=== PATIENT | male | born 1985 | race African-American/Black ===

== ENCOUNTER 2021-05-12 20:01 | Emergency (ER) | payer SELFPAY ==
--- NOTE | 2021-05-12 21:47 | RAD REPORT ---
EXAM DESCRIPTION: CT - Spine Lumbar Wo Con - 05/12/2021 9:35 pm CLINICAL HISTORY: Radiculopathy. LOWER BACK PAIN COMPARISON: No comparisons TECHNIQUE: Axial noncontrast CT imaging of the lumbar spine was performed with coronal and sagittal re-formatted images. All CT scans are performed using dose optimization technique as appropriate and may include automated exposure control or mA/KV adjustment according to patient size. FINDINGS: No acute lumbar spine fracture seen. No aggressive marrow pattern or malalignment. Paraspinal tissues are normal in thickness. No paraspinal abscess or hematoma seen. Intervertebral disc disease assessment is inherently limited by CT. Within these limitations, no high -grade canal stenosis suspected. IMPRESSION: No fracture, malalignment, or significant focal degenerative changes to explain the jurgen ent's symptoms. Consider MRI follow-up for assessment of disc disease if clinically desired.
[2021-05-12] MEDS ORDERED: HYDROCODONE/APAP 7.5/325 MG TAB ONE (22:07)
[2021-05-12] MEDS ORDERED: LIDOCAINE 4% PATCH ONE (22:07)
[2021-05-12 22:51] LABS: Urine Blood Negative (Negative); Urine Glucose Negative (Negative); Urine Protein Negative (Negative); Urine Specific Gravity 1.025 (1.005-1.030)
--- NOTE | 2021-05-12 23:02 | EDPHYS ---
Physician Documentation [facility] Name: Preston Mayes Jr Age: 35 yrs Sex: Male : 1985 Arrival Date: 05/12/2021 Time: 20:09 Bed 9 Private MD: ED Physician Marcial Adams HPI: 05/12 21:17 This 35 yrs old Black Male presents to ER via Ambulatory with complaints of Low Back cp Pain. 21:17 The patient presents with pain that is acute. The symptoms are located in the low back. cp 21:17 The pain does not radiate. 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 Patient reports worsening pain at work today. 21:17 Associated signs and symptoms: Pertinent negatives: abdominal pain, constipation, cp dysuria, fever, incontinence, numbness, weakness. Severity of symptoms: in the emergency department the symptoms are unchanged, despite home interventions. Historical: - Allergies: 20:30 No Known Allergies; sj1 - Home Meds: 20:30 Robaxin Oral [Active]; ibuprofen 600 mg Oral tab 1 tab PRN [Active]; sj1 - PMHx: 21:55 Stomach ulcer; df1 - PSHx: 21:55 None; df1 - Immunization history:: Adult Immunizations up to date. - Social history:: Smoking status: Patient reports the use of cigarette tobacco products, 2 CIGS DAILY. ROS: 21:25 Constitutional: Negative for body aches, chills, fever, poor PO intake. cp 21:25 Eyes: Negative for injury, pain, redness, and discharge. cp 21:25 ENT: Negative for ear pain, sore throat, difficulty swallowing, difficulty handling secretions. 21:25 Cardiovascular: Negative for chest pain, palpitations. 21:25 Respiratory: Negative for cough, shortness of breath, wheezing. 21:25 Abdomen/GI: Negative for abdominal pain, nausea, vomiting, and diarrhea, constipation, bowel incontinence. 21:25 Back: Positive for pain at rest, pain with movement, of the low back area and mid back area. 21:25 : Negative for urinary symptoms, difficulty urinating, bladder incontinence, testicular pain 21:25 Neuro: Negative for altered mental status, headache, numbness, tingling, weakness. 21:25 All other systems are negative. Exam: 21:30 Constitutional: The patient appears in no acute distress, alert, awake, non-toxic, well cp developed, well nourished. 21:30 Head/Face: Normocephalic, atraumatic. cp 21:30 Chest/axilla: Inspection: normal. 21:30 Cardiovascular: Rate: normal, Rhythm: regular. 21:30 Respiratory: the patient does not display signs of respiratory distress, Respirations: normal, no use of accessory muscles, no retractions, labored breathing, is not present. 21:30 Abdomen/GI: Inspection: abdomen appears normal, Palpation: abdomen is soft and non-tender, in all quadrants. 21:30 Back: pain, that is moderate, of the low back area and mid back area, ROM is painful, with all movement, Straight leg raises: of both lower extremities does not illicit pain. 21:30 Neuro: Motor: moves all fours, strength is normal, Sensation: is normal, Deep tendon reflexes are 2+ (normal) in the right patellar, right Achilles, left patellar and left Achilles. Vital Signs: 20:26 BP 116 / 88; Pulse 73; Resp 18 S; Temp 98.2(O); Pulse Ox 100% on R/A; Weight 68.04 kg sj1 (R); Height 5 ft. 8 in. (172.72 cm) (R); Pain 10/10; 21:55 BP 120 / 76; Pulse 75; Resp 18; Pulse Ox 100% on R/A; df1 20:26 Body Mass Index 22.81 (68.04 kg, 172.72 cm) sj1 MDM: 21:15 Patient medically screened. cp 22:00 Differential diagnosis: strain, sciatica, Herniated disc cauda equina, spinal stenosis. cp 23:00 Data reviewed: vital signs, nurses notes, radiologic studies, CT scan. cp 23:00 Counseling: I had a detailed discussion with the patient and/or guardian regarding: the cp historical points, exam findings, and any diagnostic results supporting the discharge/admit diagnosis, radiology results, the need for outpatient follow up, a family practitioner, to return to the emergency department if symptoms worsen or persist or if there are any questions or concerns that arise at home. Response to treatment: the patient's symptoms have markedly improved after treatment, Pain improved with meds. Will discharge to home for continued monitoring. 05/12 22:51 Order name: Urine Dipstick-Ancillary EDMS 05/12 21:17 Order name: CT Lumbar Spine Wo Con; Complete Time: 22:31 cp 05/12 22:32 Interpretation: Report reviewed. cp 05/12 21:17 Order name: Urine Dipstick-Ancillary (obtain specimen); Complete Time: 22:51 cp Administered Medications: 21:52 Drug: Hydrocodone-Acetaminophen (7.5 mg-325 mg) 1 tabs Route: PO; df1 21:52 Drug: Lidoderm Patch 5 % (700 mg/patch) 1 patches Route: Topical; Site: affected area; df1 Disposition: 05/13 04:45 Co-signature as Attending Physician, Marcial Adams MD Did not see or evaluate patient. ps1 Signature is for administrative purposes and not an endorsement of care provided. . Disposition Summary: 05/12/21 23:01 Discharge Ordered Location: Home cp Problem: new cp Symptoms: have improved cp Condition: Stable cp Diagnosis - Low back pain cp Followup: cp - With: Private Physician - When: 2 - 3 days - Reason: Recheck today's complaints Discharge Instructions: - Discharge Summary Sheet cp - Acute Back Pain, Adult cp - Heat Therapy cp - Back Exercises cp Forms: - Medication Reconciliation Form cp - Thank You Letter cp - Antibiotic Education cp - Prescription Opioid Use cp Prescriptions: - Lidoderm 5 % Topical adhesive patch,medicated - apply 1 patch by TOPICAL route once daily; 1 box; Refills: 0, Product Selection cp Permitted - Cyclobenzaprine 10 mg Oral Tablet - take 1 tablet by ORAL route every 8 hours As needed; 20 tablet; Refills: 0, cp Product Selection Permitted - Medrol (Aniceto) 4 mg Oral Tablets, Dose Pack - take 1 tablet by ORAL route as directed - follow package instructions; 1 cp packet; Refills: 0, Product Selection Permitted Signatures: Dispatcher [employer] EDMS Cory Downing PA PA Marcial Hassan MD MD ps1 Furlich, Dawn df1 Annabel Ortiz RN RN sj1
--- NOTE | 2021-05-12 23:02 | ER ---
Nurse's Notes [facility] Name: Preston Mayes Jr Age: 35 yrs Sex: Male : 1985 Arrival Date: 05/12/2021 Time: 20:09 Bed 9 Private MD: Diagnosis: Low back pain Presentation: 05/12 20:26 Chief complaint: Patient states: LOW BACK PAIN X 2 WKS, STARTED IN THE MIDDLE NOW sj1 RADIATES TO RIGHT AND LEFT SIDE. C/O NAUSEA DENIES VOMITING. DENIES INJURY TO BACK. WAS RECENTLY SEEN AND WAS PRESCRIBED ROBAXIN AND IBUPROFEN, NO IMPROVEMENT IN S/S. Coronavirus screen: Vaccine status: Patient reports receiving the 2nd dose of the covid vaccine. Date November 2021. Ebola Screen: Patient negative for fever greater than or equal to 101.5 degrees Fahrenheit, and additional compatible Ebola Virus Disease symptoms Patient denies exposure to infectious person. Patient denies travel to an Ebola-affected area in the 21 days before illness onset. No symptoms or risks identified at this time. Initial Sepsis Screen: Does the patient meet any 2 criteria? No. Patient's initial sepsis screen is negative. Does the patient have a suspected source of infection? No. Patient's initial sepsis screen is negative. Risk Assessment: Do you want to hurt yourself or someone else? Patient reports no desire to harm self or others. Onset of symptoms was April 28, 2021. 20:26 Method Of Arrival: Ambulatory [facility] 20:26 Acuity: DEEPIKA 4 sj1 Triage Assessment: 20:30 General: Appears in no apparent distress. Behavior is calm, cooperative, appropriate sj1 for age. Pain: Complains of pain in back. EENT: No deficits noted. Neuro: Reports. Neuro: Reports TINGLING IN HANDS LAST NIGHT. Cardiovascular: No deficits noted. Respiratory: No deficits noted. GI: Reports nausea. : No deficits noted. Derm: No deficits noted. Musculoskeletal: Reports pain in back. Historical: - Allergies: 20:30 No Known Allergies; sj1 - Home Meds: 20:30 Robaxin Oral [Active]; ibuprofen 600 mg Oral tab 1 tab PRN [Active]; sj1 - PMHx: 21:55 Stomach ulcer; df1 - PSHx: 21:55 None; df1 - Immunization history:: Adult Immunizations up to date. - Social history:: Smoking status: Patient reports the use of cigarette tobacco products, 2 CIGS DAILY. Screenin:32 Abuse screen: Denies threats or abuse. Denies injuries from another. Nutritional sj1 screening: No deficits noted. Tuberculosis screening: No symptoms or risk factors identified. Fall Risk None identified. Assessment: 21:57 General: Appears in no apparent distress. Behavior is calm, cooperative. Pain: df1 Complains of pain in lumbar area, low back area and left low back Pain radiates to right leg and left leg Pain currently is 7 out of 10 on a pain scale. Neuro: No deficits noted. Cardiovascular: No deficits noted. Respiratory: No deficits noted. GI: No deficits noted. : No deficits noted. EENT: No deficits noted. Musculoskeletal: No deficits noted. Vital Signs: 20:26 BP 116 / 88; Pulse 73; Resp 18 S; Temp 98.2(O); Pulse Ox 100% on R/A; Weight 68.04 kg sj1 (R); Height 5 ft. 8 in. (172.72 cm) (R); Pain 10/10; 21:55 BP 120 / 76; Pulse 75; Resp 18; Pulse Ox 100% on R/A; df1 20:26 Body Mass Index 22.81 (68.04 kg, 172.72 cm) sj1 ED Course: 20:09 Patient arrived in ED. ja2 20:30 Triage completed. sj1 20:32 Patient has correct armband on for positive identification. sj1 20:33 Arm band placed on right wrist. sj1 21:02 Kimberley Delgadillo is Primary Nurse. df1 21:08 Cory Downing PA is PHCP. cp 21:08 Marcial Adams MD is Attending Physician. cp 21:34 CT Lumbar Spine Wo Con In Process Unspecified. EDMS 23:15 No provider procedures requiring assistance completed. Patient did not have IV access df1 during this emergency room visit. Administered Medications: 21:52 Drug: Hydrocodone-Acetaminophen (7.5 mg-325 mg) 1 tabs Route: PO; df1 21:52 Drug: Lidoderm Patch 5 % (700 mg/patch) 1 patches Route: Topical; Site: affected area; df1 Outcome: 23:01 Discharge ordered by . cp 23:15 Discharged to home ambulatory. df1 23:15 Condition: good 23:15 Discharge instructions given to patient, Instructed on discharge instructions, follow up and referral plans. medication usage, Demonstrated understanding of instructions, follow-up care, medications, Prescriptions given X 3. 23:15 Patient left the ED. df1 Signatures: Dispatcher [employer] EDMS Cory Downing PA PA cp Alexander, Jessica ja2 Furlich, Dawn df1 Annabel Ortiz RN RN sj1 Corrections: (The following items were deleted from the chart) 20:36 20:26 Chief complaint: Patient states: LOW BACK PAIN X 2 WKS, STARTED IN THE MIDDLE NOW sj1 RADIATES TO RIGHT AND LEFT SIDE. C/O NAUSEA DENIES VOMITING. DENIES INJURY TO BACK sj1
[2021-05-12 23:20] VITALS: TEMP 98.2; O2SAT 100
[2021-05-12 23:21] VITALS: BP 120/76
== END 2021-05-12 23:15 | disposition home or self-care (01) ==
LOC: ER 20:01
DX: M54.50 Low back pain, unspecified (principal); F17.210 Nicotine dependence, cigarettes, uncomplicated
CPT/HCPCS: 72131; 81003; 99283

== ENCOUNTER 2022-02-25 12:56 | Emergency (ER) | payer SELFPAY ==
[2022-02-25] MEDS ORDERED: KETOROLAC 30 MG/ML INJ ONE (13:48)
--- NOTE | 2022-02-25 14:21 | RAD REPORT ---
EXAM DESCRIPTION: RAD - Wrist Right 3 View - 02/25/2022 2:11 pm CLINICAL HISTORY: PAIN COMPARISON: No comparisonsNo comparisons FINDINGS/IMPRESSION: No acute fracture. No malalignment. No significant focal degenerative changes.
--- NOTE | 2022-02-25 14:25 | ER ---
Nurse's Notes [facility] Name: Preston Mayes Jr Age: 36 yrs Sex: Male : 1985 Arrival Date: 02/25/2022 Time: 12:57 Bed 10 Private MD: Diagnosis: Pain in right wrist Presentation: 02/25 12:59 Chief complaint: Patient states: R wrist pain for 3 days. Coronavirus screen: Client ll1 denies travel out of the [place] in the last 14 days. At this time, the client does not indicate any symptoms associated with coronavirus-19. Ebola Screen: Patient denies travel to an Ebola-affected area in the 21 days before illness onset. Initial Sepsis Screen: Does the patient meet any 2 criteria? HR > 90 bpm. No. Patient's initial sepsis screen is negative. Does the patient have a suspected source of infection? Yes: Bone or joint infection. Risk Assessment: Do you want to hurt yourself or someone else? Patient reports no desire to harm self or others. Onset of symptoms was February 23, 2022. 12:59 Acuity: DEEPIKA 4 ll1 12:59 Method Of Arrival: Ambulatory 1 Triage Assessment: 13:02 General: Appears uncomfortable, Behavior is calm, cooperative, appropriate for age. ll1 Pain: Complains of pain in R wrist Quality of pain is described as aching, throbbing, Pain began 2-3 days ago. Musculoskeletal: Circulation, motion, and sensation intact. Capillary refill < 3 seconds, Range of motion: intact in all extremities, Swelling present in R wrist. Historical: - Allergies: 12:59 No Known Allergies; ll1 - PMHx: 12:59 Stomach ulcer; ll1 - PSHx: 12:59 None; ll1 - Immunization history:: Adult Immunizations up to date. - Social history:: Smoking status: Patient denies any tobacco usage or history of. Screenin:50 Abuse screen: Denies threats or abuse. Denies injuries from another. Nutritional ss screening: No deficits noted. Tuberculosis screening: Never had TB. Fall Risk None identified. Assessment: 14:50 Reassessment: Patient appears in no apparent distress at this time. Patient and/or ss family updated on plan of care and expected duration. Pain level reassessed. Patient is alert, oriented x 3, equal unlabored respirations, skin warm/dry/pink. Patient states feeling better. Patient states symptoms have improved. Neuro: Level of Consciousness is awake, alert, obeys commands. Respiratory: Airway is patent Respiratory effort is even, unlabored, Respiratory pattern is regular, symmetrical. Derm: Skin is intact, is healthy with good turgor, Skin is dry, Skin is pink, warm \T\ dry. normal. Vital Signs: 12:59 BP 139 / 72; Pulse 97; Resp 17; Temp 99.0; Pulse Ox 100% ; Weight 66.68 kg; Height 5 [facility] ft. 7 in. (170.18 cm); Pain 10/10; 12:59 Body Mass Index 23.02 (66.68 kg, 170.18 cm) [facility] ED Course: 12:57 Patient arrived in ED. 4 12:59 [facility] 12:59 Malinda Gary MD is Attending Physician. [facility] 12:59 Arm band placed on. [facility] 13:02 Triage completed. [facility] 13:04 Patient placed in an exam room, on a stretcher. [facility] 13:44 Farzaneh Vasquez, SUSANA is Primary Nurse. 14:12 XRAY Wrist RIGHT 3 view In Process Unspecified. EDMS 14:50 Patient has correct armband on for positive identification. Bed in low position. Call ss light in reach. 14:50 No provider procedures requiring assistance completed. Patient did not have IV access ss during this emergency room visit. Administered Medications: 13:44 Drug: Ketorolac 60 mg Route: IM; Site: right gluteus; ss 14:51 Follow up: Response: No adverse reaction; Marked relief of symptoms; Pain is decreased ss Medication: 14:50 VIS not applicable for this client. ss Outcome: 14:25 Discharge ordered by . [facility] 14:50 Discharged to home ambulatory. 14:50 Condition: good 14:50 Discharge instructions given to patient, Instructed on discharge instructions, follow up and referral plans. medication usage, Demonstrated understanding of instructions, follow-up care, medications, Prescriptions given X 2. 14:52 Patient left the ED. Signatures: Dispatcher [employer] EDSC Farzaneh Vasquez RN RN Na Sullivan 4 Rebekah Pearson RN RN ll1 Sheron Singh FNP EMPLOYMENT TRAINING SPECIALIST jh7 Corrections: (The following items were deleted from the chart) 13:04 12:59 BP 139 / 72; Pulse 97bpm; Resp 17bpm; Pulse Ox 100%; Pain 05/07; ll1 ll1
--- NOTE | 2022-02-25 14:25 | EDPHYS ---
Physician Documentation [facility] Name: Preston Mayes Jr Age: 36 yrs Sex: Male : 1985 Arrival Date: 02/25/2022 Time: 12:57 Bed 10 Private MD: ED Physician Malinda Gary Historical: - Allergies: 02/25 12:59 No Known Allergies; ll1 - PMHx: 12:59 Stomach ulcer; ll1 - PSHx: 12:59 None; ll1 - Immunization history:: Adult Immunizations up to date. - Social history:: Smoking status: Patient denies any tobacco usage or history of. Vital Signs: 12:59 BP 139 / 72; Pulse 97; Resp 17; Temp 99.0; Pulse Ox 100% ; Weight 66.68 kg; Height 5 ll1 ft. 7 in. (170.18 cm); Pain 10/10; 12:59 Body Mass Index 23.02 (66.68 kg, 170.18 cm) ll1 MDM: 13:04 Patient medically screened. [facility] 02/25 13:04 Order name: XRAY Wrist RIGHT 3 view; Complete Time: 14:23 [facility] Administered Medications: 13:44 Drug: Ketorolac 60 mg Route: IM; Site: right gluteus; ss 14:51 Follow up: Response: No adverse reaction; Marked relief of symptoms; Pain is decreased ss Disposition Summary: 02/25/22 14:25 Discharge Ordered Location: Home [facility] Problem: new [facility] Symptoms: are unchanged [facility] Condition: Stable [facility] Diagnosis - Pain in right wrist [facility] Followup: [facility] - With: Private Physician - When: 2 - 3 days - Reason: Recheck today's complaints Discharge Instructions: - Discharge Summary Sheet jh - Joint Pain jh7 - Musculoskeletal Pain jh7 - Wrist Pain, Adult [facility] Forms: - Medication Reconciliation Form [facility] - Thank You Letter [facility] Prescriptions: - Zanaflex 4 mg Oral Tablet - take 1 tablet by ORAL route every 8 hours As needed; 20 tablet; Refills: 0, jh7 Product Selection Permitted - Medrol (Aniceto) 4 mg Oral Tablets, Dose Pack - take 1 tablet by ORAL route as directed - follow package instructions; 1 [facility] packet; Refills: 0, Product Selection Permitted Signatures: Dispatcher [employer] Farzaneh Wakefield, RN RN ss Rebekah Pearson, RN RN ll1 Sheron Singh, PROCESS EXCELLENCE MANAGER PROCESS EXCELLENCE MANAGER [email or web address]
[2022-02-25 15:19] VITALS: BP 139/72; TEMP 99; O2SAT 100
== END 2022-02-25 14:52 | disposition home or self-care (01) ==
LOC: ER 12:56
DX: M25.531 Pain in right wrist (principal)
CPT/HCPCS: 96372; 99283

== ENCOUNTER 2022-07-18 00:55 | Emergency (ER) | payer SELFPAY ==
--- OUTSIDE RECORDS SUMMARY | 2022-07-18 00:59 | XMS REPORT | Continuity of Care Document ---
:1985 Author Organization [facility] t Address [address] [place] [address] Care Team Providers Name Role Phone PCP, PATIENT DOES NOT HAVE A Primary Care Physician Unavaila CAIN Simms Attending Clinician Unavailable Cain Adams DO Attending Clinician Cortez Ramirez Attending Clinician CAIN ADAMS Admitting Clinician Unavailable Problems Condition Condition Condition Status Onset Resolution Last Treating Co mments Source Name Details Category Date Date Treatment Clinician Date No known No known Disease Unive rs active active ity of problems problems [facility] Allergies, Adverse Reactions, Alerts Allergy Allergy Status Severity Reaction(s) Onset Inactive Treating Comm ents Source Name Type Date Date Clinician NO KNOWN Drug Active Univers ALLERGIE Class ity of S [facility] Social History Social Habit Start Date Stop Date Quantity Comments Source Exposure to Not sure [facility] SARS-CoV-2 (event) Medica l Branch Sex Assigned At [birth year] [facility] 00:00:00 00:00:00 [facility] Smoking Status Start Date Stop Date Source Unknown if ever smoked [facility] Medications Ordered Filled Start Stop Current Ordering Indication Dosage Frequency Signature Comments Components Source Medication Medication Date Date Medication? Clinician (SIG) Name Name ondansetron 2021-0 2021- No 4mg 4 mg, Slow Univers (ZOFRAN 3-08 03-08 IV Push, ity of (PF)) 14:30: 13:26 ONCE, 1 [place] injection 4 00 :00 dose, On Medi hunter mg Sat10/03/21 Branch at 0830, CORBY iopamidol 2021- No [id number] 120mL 120 mL, Univers (ISOVUE 3- 03-08 Intravenou ity o f 370-500 mL) 13:37: 13:37 s, ONCE, 1 [place] injection 00 :00 dose, On Medica l 120 mL Sat10/03/21 Branch at 0800, Routine NaCl 0.9% 2021- No 1000mL at 999 Uni vers (NS) bolus 3- 03-08 mL/hr, ity of infusion 13:15: 14:39 1,000 mL, [place] as 1,000 mL 00 :00 IV Medical Infusion, Branch ONCE, 1 dose, On Sat10/03/21 at 0715, STAT chlorphenir Yes [id number] 4mg Take 1 Univers amine 4 mg 3-08 tablet by ity of tablet 00:00: mouth [place] 00 every 6 Medical (six) Branch hours as needed for Allergies or Runny nose. calcium/mag Yes [id number] 1{each} Take 1 Univers nesium/zinc 3-08 Each by ity o f (CALCIUM-MA 00:00: mouth [place] GNESUIUM-ZI 00 daily. Medica l NC) Branch 333-133-5 mg Tab benzonatate 0 Yes [id number] 100mg Take 1 Univers 100 mg 3-08 capsule by ity of capsule 00:00: mouth 3 [place] 00 (three) Medical times Branch daily as needed for Cough. ondansetron Yes [id number] 4mg Take 1 Univers 4 mg 3-08 tablet by ity of disintegrat 00:00: mouth [place] ing tablet 00 every 8 Medica l (eight) Branch hours as needed for Nausea and Vomiting (N/V). vitamin 2021- No [id number] 1{tbl} Take 1 Univers D3-folic 3-08 04-08 tablet by ity o f acid 125 00:00: 04:59 mouth [place] mcg (5,000 00 :00 daily for Medi hunter unit)-1 mg 30 days. Branc h Tab NaCl 0.9% 2020-07- No 1000mL at 999 Uni vers (NS) bolus 0-13 10-13 mL/hr, ity of infusion 17:30: 18:11 1,000 mL, [place] as 1,000 mL 00 :00 IV Medical Infusion, Branch ONCE, 1 dose, On Sat05/10/21 at 1230, CORBY ketorolac 2020-07- No 30mg 30 mg, Unive rs (TORADOL) 0-13 10-13 Slow IV ity of injection 16:45: 16:38 Push, [place] 30 mg 00 :00 ONCE, 1 Medical dose, On Branch Sat05/10/21 at 1145, Routine
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 ibuprofen 2020-07 Yes [id number] 600mg Take 1 Univers 600 mg 0-13 tablet by ity of tablet 00:00: mouth [place] 00 every 6 Medical (six) Branch hours as needed for Pain (scale 4-6). lactulose 2020-07- No [id number] 30mL Take 30 mL Univers 10 gram/15 0-13 10-19 by mouth ity of mL oral 00:00: 04:59 daily [place] solution 00 :00 5 days. Medical Branch methocarbam 2020-07- No [id number] 1500mg Take 2 Univers oL 750 mg 0-13 10-17 tablets by ity of tablet 00:00: 04:59 mouth 4 [place] 00 :00 (four) Medical times Branch daily for 3 days. Vital Signs Vital Name Observation Time Observation Value Comments Source Systolic blood 2021-10-03 13:30:00 112 mm[Hg] Univer sity of pressure [facility] Diastolic blood 2021-10-03 13:30:00 70 mm[Hg] Unive rsity of pressure [facility] Heart rate 2021-10-03 13:30:00 74 /min [facility] Respiratory rate 2021-10-03 13:30:00 14 /min [facility] in 2021-10-03 13:30:00 100 /min [facility] Arterial blood by [facility] Pulse oximetry Branch Body temperature 2021-10-03 13:02:00 36.56 Yumiko [facility] Body weight 2021-10-03 13:02:00 68.04 kg [facility] BMI 2021-10-03 13:02:00 22.81 kg/m2 [facility] Systolic blood 2021-05-10 16:33:45 118 mm[Hg] Univer sity of [facility] Diastolic blood 2021-05-10 16:33:45 82 mm[Hg] [facility] Heart rate 2021-05-10 16:33:45 56 /min [facility] Respiratory rate 2021-05-10 16:33:45 16 /min [facility] Oxygen saturation in 2021-05-10 16:33:45 100 /min [facility] Arterial blood by [facility] Pulse oximetry Branch Body temperature 2021-05-10 13:57:00 37.28 Yumiko [facility] Body height 2021-05-10 13:57:00 172.7 cm [facility] Body weight 2021-05-10 13:57:00 67.132 kg [facility] BMI 2021-05-10 13:57:00 22.50 kg/m2 [facility] Procedures Procedure Date / Time Performed Performing Clinician Sour e COMP. METABOLIC PANEL 2021-10-03 13:47:00 [facility] ([id number]) [facility] CBC WITH DIFF 2021-10-03 13:47:00 Cain Adams [facility] CT ABDOMEN PELVIS W 2021-10-03 13:45:08 Cain Adams [facility] CONTRAST [facility] XR CHEST 1 VW 2021-10-03 13:36:20 Cain Adams [facility] TROPONIN I 2021-10-03 13:17:00 Cain Adams [facility] RAPID INFLUENZA A/B 2021-10-03 13:17:00 Cain Adams [facility] COVID-19 (ID NOW RAPID 2021-10-03 13:17:00 Cain Adams [facility] TESTING) Medical Branch NOTICE OF PRIVACY 2021-10-03 12:58:23 Doctor Unassigned, No Univ [facility] Name Medical Branch CONSENT/REFUSAL FOR 2021-10-03 12:57:26 [facility], [facility] Name Medical Branch TREATMENT CBC WITH DIFF 2021-05-10 16:32:00 Cortez Coombs [facility] CT ABDOMEN PELVIS WO 2021-05-10 15:55:58 Cort[facility]bs [facility] [place] CONTRAST [facility] COMP. METABOLIC PANEL 2021-05-10 15:45:00 [facility] ([id number] URINALYSIS 2021-05-10 15:45:00 Cortez Coombs [facility] NOTICE OF PRIVACY 2021-05-10 13:42:19 Doctor Unassigned, No [facility] Name Medical Branch Encounters Start End Encounter Admission Attending Care Care Encounter Source Date/Time Date/Time Type Type Clinicians Facility Department ID 2021-10-03 2021-10-03 Emergency X SINGER [facility] ERT [id number] Univers 07:05:00 08:48:00 CAIN cline [facility] 2021-10-03 2021-10-03 Emergency Singer [facility] [id number] Univers 07:05:00 08:48:00 Cain DEMPSEY [id number] i ty [facility] [id number] [place] [id number] 2021-05-10 2021-05-10 Emergency Demario [facility] [id number] Univers 09:00:00 13:11:00 Cortez Dempsey [id number] ity [facility] [id number] [place] [id number] 2021-05-10 2021-05-10 Emergency X [facility] ERT [id number] Univers 08:43:00 08:43:00 [facility] Results Test Description Test Time Test Comments Results Result Comments Source COMP. METABOLIC PANEL ([id number]) 2021-10-03 14:08:36 Test Item Value Reference Range Interpretation Comme nts NA (test code = 0711998882) 133 mmol/L 135-145 L K (test code = 0596209653) 3.9 mmol/L 3.5-5.0 CL (test code = 1866107417) 101 mmol/L 98-108 CO2 TOTAL (test code = 4303300757) 27 mmol/L 23-31 AGAP (test code = 3771963645) 2-16 BUN (test code = 6140633318) 12 mg/dL 7-23 GLUCOSE (test code = 4907379791) 121 mg/dL 70-110 H CREATININE (test code = 0.88 mg/dL 0.60-1.25 0372593623) TOTAL BILI (test code = 0.4 mg/dL 0.1-1.1 2433490345) CALCIUM (test code = 9894924524) 7.9 mg/dL 8.6-10.6 L T PROTEIN (test code = 8274742178) 5.8 g/dL 6.3-8.2 L ALBUMIN (test code = 3664460557) 3.4 g/dL 3.5-5.0 L ALK PHOS (test code = 5939792149) 44 U/L 34-122 ALTv (test code = 1742-6) 12 U/L 5-50 AST(SGOT) (test code = 6702754591) 20 U/L 13-40 eGFR (test code = 6676568552) mL/min/1.73m2 OLIVE (test code = OLIVE) Association of Glomerular Filtration Rate (GFR) and Staging of Kidney Disease* + +-------- + ------+| GFR (mL/min/1.73 m2) ?| With Kidney Damage ?| ?Without Kidney Damage+ +-- + +| ?>90 ?| ?Stage one ?| ? Normal ?+ +------- + -------+| ?60-89 ?| ?Stage two ?| ? Decreased GFR ? + +-------- + ------+| ?30-59 ?| ?Stage three ?| ? Stage three ? + +-------- + ------+| ?15-29 ?| ?Stage four ? | ? Stage four ?+ +------- + -------+| ?<15 (or dialysis) ? ?| ?Stage five ? | ? Stage five ?+ +------- + -------+ *Each stage assumes the associated GFR level has been in effect for at least three months. ?Stages 1 to 5, with or without kidney disease, indicate chronic kidney disease. Notes: Determination of stages one and two (with eGFR >59mL/min/1.73 m2) requires estimation of kidney damage for at least three months as defined by structural or functional abnormalities of the kidney, manifested by either:Pathological abnormalities or Markers of kidney damage (including abnormalities in the composition of the blood or urine or abnormalities in imaging tests). Lab Interpretation (test code = Abnormal 32187-2) [facility] acute hospital WITH [id number] 13:56:56 Test Item Value Reference Range Interpretation Comments WBC (test code = See_Comment [Automated 6590-2) message] The sy stem which generated this result transmitted reference range : 4.20 - 10.70 10*3/?L. The reference range was not used to interpret this result as normal/abnormal . RBC (test code = See_Comment L [Automated 789-8) message] The sy stem which generated this result transmitted reference range : 4.26 - 5.52 10*6/?L. The reference range was not used to interpret this result as normal/abnormal . HGB (test code = 11.8 g/dL 12.2-16.4 L 718-7) HCT (test code = 34.5 % 38.4-49.3 L 4544-3) MCV (test code = 89.1 fL 81.7-95.6 787-2) MCH (test code = 30.5 pg 26.1-32.7 785-6) MCHC (test code = 34.2 g/dL 31.2-35.0 786-4) RDW-SD (test code = 35.5 fL 38.5-51.6 L 78655-9) RDW-CV (test code = 10.9 % 12.1-15.4 L 788-0) PLT (test code = See_Comment [Automated 777-3) message] The sy stem which generated this result transmitted reference range : 150 - 328 10*3/ ?L. The reference r peg was not used to interpret this result as normal/abnormal . MPV (test code = 9.4 fL 9.8-13.0 L 60745-4) NRBC/100 WBC (test See_Comment [Automat ed code = 5758966125) message] The system which generated this result transmitted reference range : 0.0 - 10.0 /100 WBCs. The refer ence range was not u sed to interpret th is result as normal/abnormal . NRBC x10^3 (test code <0.01 See_Comment [Auto mated = 7720431918) message] The s ystem which generated this result transmitted reference range : 10*3/?L. The reference range was not used to interpret this result as normal/abnormal . GRAN MAT (NEUT) % 69.2 % (test code = 770-8) IMM GRAN % (test code 0.40 % = 1879569291) LYMPH % (test code = 15.3 % 736-9) MONO % (test code = 12.6 % 5905-5) EOS % (test code = 2.3 % 713-8) BASO % (test code = 0.2 % 706-2) GRAN MAT x10^3(ANC) 3.30 10*3/uL 1.99-6.95 (test code = 7443594750) IMM GRAN x10^3 (test <0.03 0.00-0.06 code = 2174623520) LYMPH x10^3 (test code 0.73 10*3/uL 1.09-3.23 L = 731-0) MONO x10^3 (test code 0.60 10*3/uL 0.36-1.02 = 742-7) EOS x10^3 (test code = 0.11 10*3/uL 0.06-0.53 711-2) BASO x10^3 (test code <0.03 0.01-0.09 = 704-7) Lab Interpretation Abnormal (test code = 24018-5) [id number] 13:51:14 Test Item Value Reference Interpretation Comments Range TROPONIN I (test 0.016 ng/mL See_Comment [Automated code = 4803998800) message] The system which generated this result transmitted reference range : <=0.034. The reference range was not used to interpret this result as normal/abnormal . OLIVE (test code = Reference (Normal) OLIVE) Range (defined by the 99th percentile reference limit): <= 0.034 ng/mL Note: Cardiac troponin begins to rise 3-4 hours after the onset of ischemia. Repeat in 4-6 hours if the sample was drawn within 3-4 hours of the onset of the symptom and found normal. Diagnosis of myocardial injury is made with acute changes in cTn concentrations with at least one serial sample above the 99th percentile upper reference limit (URL), taken together with the patient's clinical presentation. Biotin has been reported to cause a negative bias, interpret results relative to patient's use of biotin. Lab Interpretation Normal (test code = 94300-9) General acute hospital WITH [id number] 17:33:17 Test Item Value Reference Range Interpretation Comments WBC (test code = See_Comment L [Automated 3378-2) message] The sy stem which generated this result transmitted reference range : 4.20 - 10.70 10*3/?L. The reference range was not used to interpret this result as normal/abnormal . RBC (test code = See_Comment [Automated 936-8) message] The sy stem which generated this result transmitted reference range : 4.26 - 5.52 10*6/?L. The reference range was not used to interpret this result as normal/abnormal . HGB (test code = 13.6 g/dL 12.2-16.4 718-7) HCT (test code = 40.9 % 38.4-49.3 4544-3) MCV (test code = 91.9 fL 81.7-95.6 787-2) MCH (test code = 30.6 pg 26.1-32.7 785-6) MCHC (test code = 33.3 g/dL 31.2-35.0 786-4) RDW-SD (test code = 38.4 fL 38.5-51.6 L 07501-0) RDW-CV (test code = 11.3 % 12.1-15.4 L 788-0) PLT (test code = See_Comment [Automated 777-3) message] The sy stem which generated this result transmitted reference range : 150 - 328 10*3/ ?L. The reference r peg was not used to interpret this result as normal/abnormal . MPV (test code = 9.6 fL 9.8-13.0 L 68656-7) NRBC/100 WBC (test See_Comment [Automat ed code = 7755693363) message] The system which generated this result transmitted reference range : 0.0 - 10.0 /100 WBCs. The refer ence range was not u sed to interpret th is result as normal/abnormal . NRBC x10^3 (test code <0.01 See_Comment [Auto mated = 6891422682) message] The s ystem which generated this result transmitted reference range : 10*3/?L. The reference range was not used to interpret this result as normal/abnormal . GRAN MAT (NEUT) % 44.3 % (test code = 770-8) IMM GRAN % (test code 0.20 % = 0244402661) LYMPH % (test code = 40.3 % 736-9) MONO % (test code = 8.4 % 5905-5) EOS % (test code = 6.1 % 713-8) BASO % (test code = 0.7 % 706-2) GRAN MAT x10^3(ANC) 1.80 10*3/uL 1.99-6.95 L (test code = 1377768905) IMM GRAN x10^3 (test <0.03 0.00-0.06 code = 2330510958) LYMPH x10^3 (test code 1.64 10*3/uL 1.09-3.23 = 731-0) MONO x10^3 (test code 0.34 10*3/uL 0.36-1.02 L = 742-7) EOS x10^3 (test code = 0.25 10*3/uL 0.06-0.53 711-2) BASO x10^3 (test code 0.03 10*3/uL 0.01-0.09 = 704-7) Lab Interpretation Abnormal (test code = 75814-1) [facility]. METABOLIC PANEL (46616)2021-05-10 16:12:36 Test Item Value Reference Range Interpretation Comments NA (test code = 139 mmol/L 135-145 6552611231) K (test code = 4.5 mmol/L 3.5-5.0 6159089129) CL (test code = 105 mmol/L 98-108 6218177424) CO2 TOTAL (test code = 28 mmol/L 23-31 5659052491) AGAP (test code = 2-16 0885908351) BUN (test code = 13 mg/dL 7-23 2588479166) GLUCOSE (test code = 89 mg/dL 70-110 7878427531) CREATININE (test code = 0.78 mg/dL 0.60-1.25 5450126404) TOTAL BILI (test code = 0.9 mg/dL 0.1-1.1 2900781023) CALCIUM (test code = 9.9 mg/dL 8.6-10.6 5355916944) T PROTEIN (test code = 8.3 g/dL 6.3-8.2 H 3985010558) ALBUMIN (test code = 5.0 g/dL 3.5-5.0 4073641887) ALK PHOS (test code = 45 U/L 34-122 4352579049) ALTv (test code = 21 U/L 5-50 1742-6) AST(SGOT) (test code = 44 U/L 13-40 H 4292739296) eGFR (test code = mL/min/1.73m2 0705319128) OLIVE (test code = OLIVE) Association of Glomerular Filtration Rate (GFR) and Staging of Kidney Disease* + --+ --+ ------+| GFR (mL/min/1.73 m2) ?| With Kidney Damage ?| ?Without Kidney Damage+ --------+ --------+ +| ?>90 ?| ?Stage one ?| ? Normal ?+ ---+ ---+ -------+| ?60-89 ?| ?Stage two ?| ? Decreased GFR ? + --+ --+ ------+| ?30-59 ?| ?Stage three ?| ? Stage three ? + --+ --+ ------+| ?15-29 ?| ?Stage four ? | ? Stage four ?+ ---+ ---+ -------+| ?<15 (or dialysis) ? ?| ?Stage five ? | ? Stage five ?+ ---+ ---+ -------+ *Each stage assumes the associated GFR level has been in effect for at least three months. ?Stages 1 to 5, with or without kidney disease, indicate chronic kidney disease. Notes: Determination of stages one and two (with eGFR >59mL/min/1.73 m2) requires estimation of kidney damage for at least three months as defined by structural or functional abnormalities of the kidney, manifested by either:Pathological abnormalities or Markers of kidney damage (including abnormalities in the composition of the blood or urine or abnormalities in imaging tests). Lab Interpretation Abnormal (test code = 97197-5) [facility]"
--- NOTE | 2022-07-18 01:39 | ER ---
Nurse's Notes [facility] Name: Preston Mayes Jr Age: 36 yrs Sex: Male : 1985 Arrival Date: 07/18/2022 Time: 01:05 Bed 20 Private MD: Diagnosis: Unspecified hemorrhoids Presentation: 07/18 01:11 Chief complaint: Patient states: HEMORRHOIDS X2 MONTHS. Coronavirus screen: At this jj7 time, the client does not indicate any symptoms associated with coronavirus-19. Ebola Screen: No symptoms or risks identified at this time. Initial Sepsis Screen: Does the patient meet any 2 criteria? No. Patient's initial sepsis screen is negative. Does the patient have a suspected source of infection? No. Patient's initial sepsis screen is negative. Risk Assessment: Do you want to hurt yourself or someone else? Patient reports no desire to harm self or others. Onset of symptoms is unknown. 01:11 Method Of Arrival: Ambulatory [facility] 01:11 Acuity: DEEPIKA 4 jj7 Triage Assessment: 01:15 General: Appears in no apparent distress. uncomfortable, Behavior is calm, cooperative, jj7 appropriate for age. Pain: Complains of pain in gluteal cleft. GI: Reports hemorrhoids. Historical: - Allergies: 01:15 No Known Allergies; jj7 - PMHx: 01:15 Stomach ulcer; jj7 - PSHx: 01:15 None; jj7 - Immunization history:: Client reports receiving the 2nd dose of the Covid vaccine, Flu vaccine is up to date. - Social history:: Smoking status: Patient reports the use of cigarette tobacco products, smokes one-half pack cigarettes per day, Patient/guardian denies using alcohol, street drugs. Screenin:43 [facility] ED Fall Risk Assessment (Adult) Score/Fall Risk Level 0 - 2 = Low Risk. Humpty as6 Dumpty Scale Fall Assessment Tool (age< 18yrs) Fall Risk Score/ Level Low Fall Risk: </= 11 points. Abuse screen: Denies threats or abuse. Denies injuries from another. Nutritional screening: No deficits noted. Tuberculosis screening: No symptoms or risk factors identified. Fall Risk Total May Fall Scale indicates No Risk (0-24 pts). Assessment: 01:44 General: Appears in no apparent distress. Behavior is calm, cooperative. Pain: as6 Complains of pain in gluteal cleft. Neuro: Level of Consciousness is awake, alert, obeys commands, Oriented to person, place, time, situation. Cardiovascular: Capillary refill < 3 seconds Patient's skin is warm and dry. Respiratory: Respiratory effort is even, unlabored. GI: Reports hemorrhoids. Vital Signs: 01:11 BP 130 / 97; Pulse 102; Resp 20; Temp 98.6; Pulse Ox 99% ; Weight 65.77 kg; Height 5 j7 ft. 8 in. (172.72 cm); Pain 9/10; 01:11 Body Mass Index 22.05 (65.77 kg, 172.72 cm) j7 ED Course: 01:05 Patient arrived in ED. ja2 01:08 Cory Downing PA is PHCP. cp 01:08 Malinda Gary MD is Attending Physician. cp 01:15 Triage completed. jj7 01:15 Arm band placed on right wrist. jj7 01:18 Rob Madden, RN is Primary Nurse. as6 01:38 Adonis Ochoa MD is Referral Physician. cp 01:44 Bed in low position. Call light in reach. as6 01:44 No provider procedures requiring assistance completed. Patient did not have IV access as6 during this emergency room visit. Administered Medications: No medications were administered Medication: 01:44 VIS not applicable for this client. as6 Outcome: 01:39 Discharge ordered by . cp 01:45 Discharged to home ambulatory. as6 01:45 Condition: stable 01:45 Discharge instructions given to patient, Instructed on discharge instructions, follow up and referral plans. medication usage, Demonstrated understanding of instructions, follow-up care, medications, Prescriptions given X 1. 01:45 Patient left the ED. as6 Signatures: Cory Downing PA PA cp Alexander, Jessica ja2 Rob Madden, SUSANA RN as6 Sidra Ortiz RN RN jj7
--- NOTE | 2022-07-18 01:40 | EDPHYS ---
Physician Documentation [facility] Name: Preston Mayes Jr Age: 36 yrs Sex: Male : 1985 Arrival Date: 07/18/2022 Time: 01:05 Bed 20 Private MD: ED Physician Malinda Gary HPI: 07/18 01:31 This 36 yrs old Black Male presents to ER via Ambulatory with complaints of Rectal Pain.cp 01:31 The patient presents to the emergency department with pain in the rectal area, that is cp mild. Onset: The symptoms/episode began/occurred 3 month(s) ago. Associate signs and symptoms: Pertinent positives: history of hemorrhoids, Pertinent negatives: constipation, diarrhea, fever, vomiting. Historical: - Allergies: 01:15 No Known Allergies; jj7 - PMHx: 01:15 Stomach ulcer; jj7 - PSHx: 01:15 None; jj7 - Immunization history:: Client reports receiving the 2nd dose of the Covid vaccine, Flu vaccine is up to date. - Social history:: Smoking status: Patient reports the use of cigarette tobacco products, smokes one-half pack cigarettes per day, Patient/guardian denies using alcohol, street drugs. ROS: 01:33 Eyes: Negative for injury, pain, redness, and discharge. cp 01:33 Constitutional: Negative for body aches, chills, fever, poor PO intake. 01:33 ENT: Negative for drainage from ear(s), ear pain, sore throat, difficulty swallowing, difficulty handling secretions. 01:33 Cardiovascular: Negative for chest pain, edema, palpitations. 01:33 Respiratory: Negative for cough, shortness of breath, wheezing. 01:33 Abdomen/GI: Positive for rectal pain, Negative for abdominal pain, vomiting, diarrhea, constipation. 01:33 : Negative for urinary symptoms, testicular pain 01:33 All other systems are negative. Exam: 01:35 Head/Face: Normocephalic, atraumatic. cp 01:35 Constitutional: The patient appears in no acute distress, alert, awake, comfortable, non-toxic, well developed, well nourished. 01:35 Cardiovascular: Rate: tachycardic, Rhythm: regular. 01:35 Respiratory: the patient does not display signs of respiratory distress, Respirations: normal, no use of accessory muscles, no retractions, labored breathing, is not present. 01:35 Abdomen/GI: Inspection: abdomen appears normal, Palpation: abdomen is soft and non-tender, in all quadrants, Rectal exam: hemorrhoid(s), external, without bleeding, without inflammation, without thrombosis, mild tenderness to palpation, no active bleeding noted, swelling, is not appreciated, no rectal swelling or abscess palpated. Vital Signs: 01:11 BP 130 / 97; Pulse 102; Resp 20; Temp 98.6; Pulse Ox 99% ; Weight 65.77 kg; Height 5 jj7 ft. 8 in. (172.72 cm); Pain 9/10; 01:11 Body Mass Index 22.05 (65.77 kg, 172.72 cm) j7 MDM: 01:20 Patient medically screened. cp 01:37 Differential diagnosis: hemorrhoids, fissure, abscess, pilonidal cyst, condyloma. Data cp reviewed: vital signs, nurses notes. Counseling: I had a detailed discussion with the patient and/or guardian regarding: the historical points, exam findings, and any diagnostic results supporting the discharge/admit diagnosis, the need for outpatient follow up, a general surgeon, to return to the emergency department if symptoms worsen or persist or if there are any questions or concerns that arise at home. Administered Medications: No medications were administered Disposition Summary: 07/18/22 01:39 Discharge Ordered Location: Home cp Problem: an ongoing problem cp Symptoms: are unchanged cp Condition: Stable cp Diagnosis - Unspecified hemorrhoids cp Followup: cp - With: Adonis Ochoa MD - When: 2 - 3 days - Reason: Recheck today's complaints Discharge Instructions: - Discharge Summary Sheet cp - High-Fiber Diet cp - Hemorrhoids cp - Surgical Procedures for Hemorrhoids cp Forms: - Medication Reconciliation Form cp - Thank You Letter cp - Antibiotic Education cp - Prescription Opioid Use cp Prescriptions: - Anusol-HC 2.5 % Topical cream with perineal applicator - apply 1 application by TOPICAL route 2-4 times daily As needed; 1 tube; cp Refills: 0, Product Selection Permitted Addendum: 07/19/2022 20:59 STAFF ATTESTATION STATEMENT: I was immediately available onsite in the emergency s d2 department for consultation in the care of this patient. I did not see or examine this patient. Malinda Gary MD. Signatures: Cory Downing PA PA cp Dunlop, Stephanie, MD MD sd2 Sidra Ortiz RN RN jj7
[2022-07-18 02:09] VITALS: BP 130/97; TEMP 98.6; O2SAT 99
== END 2022-07-18 01:45 | disposition home or self-care (01) ==
LOC: ER 00:55
DX: K64.9 Unspecified hemorrhoids (principal)

== ENCOUNTER 2023-06-23 16:03 | Emergency (ER) | payer SELFPAY ==
--- OUTSIDE RECORDS SUMMARY | 2023-06-23 16:07 | XMS REPORT | Continuity of Care Document ---
:1985 Author Organization [facility] t Address [address] [facility] [place] [address] Care Team Providers Name Role Phone PCP, PATIENT DOES NOT HAVE A Primary Care Physician Unavaila LAURY Ortiz Attending Clinician Unavailable Laury Irvin DO Attending Clinician Perico Rene Attending Clinician Perico VAZQUEZ Attending Clinician Unavailable CAIN ADAMS Attending Clinician Unavailable Cain Adams DO Attending Clinician Stanley Ramirez Attending Clinician CAIN ADAMS Admitting Clinician Unavailable Payers Payer Name Policy Type Policy Number Effective Date Expiration Date Albert morales [employer] [id number] 2023 OUT OF NETWORK 00:00:00 Problems Condition Condition Condition Status Onset Resolution Last Treating Co mments Source Name Details Category Date Date Treatment Clinician Date No known No known Disease Unive rs active active ity of problems problems [facility] Allergies, Adverse Reactions, Alerts Allergy Allergy Status Severity Reaction(s) Onset Inactive Treating Comm ents Source Name Type Date Date Clinician NO KNOWN Drug Active Univers ALLERGIE Class ity of [facility] Social History Social Habit Start Date Stop Date Quantity Comments Source Sexual orientation Univer sity [facility] Exposure to Not sure [facility] SARS-CoV-2 (event) Medica l Branch Sex Assigned At [birth year] Uni versity [facility] 00:00:00 00:00:00 Medical Branch Smoking Status Start Date Stop Date Source Tobacco smoking consumption [facility] Medications Ordered Filled Start Stop Current Ordering Indication Dosage Frequency Signature Comments Components Source Medication Medication Date Date Medication? Clinician (SIG) Name Name chanel:diph 2022-07 No 15mL 15 mL, Uni vers enhydrAMINE 08-22 Oral, ity of :lidocaine 22:45: 22:39 ONCE, 1 [place] as 2 % viscous 00 :00 dose, On Medi hunter 1:1:1 Sat Branch (FIRST-MOUT 06/22/23 [facility]) at 1645, oral Routine suspension 15 mL ibuprofen 2022-07 No 800mg 800 mg, Uni vers (IBU) 08-22 Oral, ity of tablet 800 22:45: 22:39 ONCE, 1 [place] as mg 00 :00 dose, On Medical Sat Branch 06/22/23 at 1645, CORBY ondansetron 2022-07 No 4mg 4 mg, [facility] ers (ZOFRAN-ODT 0-03 10-03 Oral, ity of ) 06:30: 05:34 ONCE, 1 [place] disintegrat 00 :00 dose, On [facility] ing tablet [facility] Branch 4 mg 04/30/23 at 0130, Routine acetaminoph 2022-07- No 1000mg 1,000 mg, Univers en 0-03 10-03 Oral, ity of (TYLENOL) 05:30: 05:33 ONCE, 1 [place] tablet 00 :00 dose, On Medical 1,000 mg Tue Branch 04/30/23 at 0030, CORBY ondansetron 2022-07 Yes [id number] 4mg Take 1 Univers 4 mg 0-03 tablet by ity of disintegrat 00:00: mouth [place] ing tablet 00 every 8 Medica l (eight) Branch hours as needed for Nausea and Vomiting (N/V). benzonatate 2022-07 Yes [id number] 200mg Take 1 Univers 200 mg 0-03 capsule by ity of capsule 00:00: mouth 3 [place] 00 (three) Medical times Branch daily as needed for Cough for up to 20 doses. ondansetron 2022-07 Yes [id number] 4mg Take 1 Univers 4 mg 0-03 tablet by ity of disintegrat 00:00: mouth [place] ing tablet 00 every 8 Medica l (eight) Branch hours as needed for Nausea and Vomiting (N/V). benzonatate 2022-07 Yes [id number] 200mg Take 1 Univers 200 mg 0-03 capsule by ity of capsule 00:00: mouth 3 [place] 00 (three) Medical times Branch daily as needed for Cough for up to 20 doses. ondansetron 2021- No 4mg 4 mg, Slow Univers (ZOFRAN 10-03 03-08 IV Push, ity of (PF)) 14:30: 13:26 ONCE, 1 [place] injection 4 00 :00 dose, On Medi hunter mg 10/03/21 Branch at 0830, CORBY iopamidol 2021- No [id number] 120mL 120 mL, Univers (ISOVUE 10-03 03-08 Intravenou ity o f 370-500 mL) 13:37: 13:37 s, ONCE, 1 [place] injection 00 :00 dose, On Medica l 120 mL 10/03/21 Branch at 0800, Routine NaCl 0.9% 2021- No 1000mL at 999 Uni vers (NS) bolus 10-03 03-08 mL/hr, ity of infusion 13:15: 14:39 1,000 mL, [place] as 1,000 mL 00 :00 IV Medical Infusion, Branch ONCE, 1 dose, On Sat10/03/21 at 0715, STAT chlorphenir 0 Yes [id number] 4mg Take 1 Univers amine 4 mg 3-08 tablet by ity of tablet 00:00: mouth [place] 00 every 6 Medical (six) Branch hours as needed for Allergies or Runny nose. calcium/mag 0 Yes [id number] 1{each} Take 1 Univers nesium/zinc 3-08 Each by ity o f (CALCIUM-MA 00:00: mouth [place] GNESUIUM-ZI 00 daily. Medica l NC) Branch 333-133-5 mg Tab benzonatate 0 Yes [id number] 100mg Take 1 Univers 100 mg 3-08 capsule by ity of capsule 00:00: mouth 3 [place] 00 (three) Medical times Branch daily as needed for Cough. ondansetron 2022-0 Yes [id number] 4mg Take 1 Univers 4 mg 3-08 tablet by ity of disintegrat 00:00: mouth [place] ing tablet 00 every 8 Medica l (eight) Branch hours as needed for Nausea and Vomiting (N/V). chlorphenir 2022-0 Yes [id number] 4mg Take 1 Univers amine 4 mg 3-08 tablet by ity of tablet 00:00: mouth [place] 00 every 6 Medical (six) Branch hours as needed for Allergies or Runny nose. calcium/mag 2022-0 Yes [id number] 1{each} Take 1 Univers nesium/zinc 3-08 Each by ity o f (CALCIUM-MA 00:00: mouth [place] GNESUIUM-ZI 00 daily. Medica l NC) Branch 333-133-5 mg Tab benzonatate 2022-0 Yes [id number] 100mg Take 1 Univers 100 mg 3-08 capsule by ity of capsule 00:00: mouth 3 [place] 00 (three) Medical times Branch daily as needed for Cough. ondansetron 2022-0 Yes [id number] 4mg Take 1 Univers 4 mg 3-08 tablet by ity of disintegrat 00:00: mouth [place] ing tablet 00 every 8 Medica l (eight) Branch hours as needed for Nausea and Vomiting (N/V). chlorphenir 2022-0 Yes [id number] 4mg Take 1 Univers amine 4 mg 3-08 tablet by ity of tablet 00:00: mouth [place] 00 every 6 Medical (six) Branch hours as needed for Allergies or Runny nose. calcium/mag 2022-0 Yes [id number] 1{each} Take 1 Univers nesium/zinc 3-08 Each by ity o f (CALCIUM-MA 00:00: mouth [place] GNESUIUM-ZI 00 daily. Medica l NC) Branch 333-133-5 mg Tab benzonatate 2022-0 Yes [id number] 100mg Take 1 Univers 100 mg 3-08 capsule by ity of capsule 00:00: mouth 3 [place] 00 (three) Medical times Branch daily as needed for Cough. ondansetron 2022-0 Yes [id number] 4mg Take 1 Univers 4 mg 3-08 tablet by ity of disintegrat 00:00: mouth [place] ing tablet 00 every 8 Medica l (eight) Branch hours as needed for Nausea and Vomiting (N/V). vitamin 2022-0 2022- No [id number] 1{tbl} Take 1 Univers D3-folic 3-08 -08 tablet by ity o f acid 125 00:00: 04:59 mouth [place] mcg (5,000 00 :00 daily for Medi hunter unit)-1 mg 30 days. Branc h Tab NaCl 0.9% 2020-07 No 1000mL at 999 Uni vers (NS) bolus 0-13 10-13 mL/hr, ity of infusion 17:30: 18:11 1,000 mL, [place] as 1,000 mL 00 :00 IV Medical Infusion, Branch ONCE, 1 dose, On Sat05/10/21 at 1230, CORBY ketorolac 2020-07 No 30mg 30 mg, Unive rs (TORADOL) 0-13 10-13 Slow IV ity of injection 16:45: 16:38 Push, [place] 30 mg 00 :00 ONCE, 1 Medical dose, On Branch Sat05/10/21 at 1145, Routine
biology faculty member approving Restricted medication : STANLEY HANKS ibuprofen 2020-07 Yes [id number] 600mg Take 1 Univers 600 mg 0-13 tablet by ity of tablet 00:00: mouth [place] 00 every 6 Medical (six) Branch hours as needed for Pain (scale 4-6). ibuprofen 2020-07 Yes [id number] 600mg Take 1 Univers 600 mg 0-13 tablet by ity of tablet 00:00: mouth [place] 00 every 6 Medical (six) Branch hours as needed for Pain (scale 4-6). ibuprofen 2020-07 Yes [id number] 600mg Take 1 Univers 600 mg 0-13 tablet by ity of tablet 00:00: mouth [place] 00 every 6 Medical (six) Branch hours as needed for Pain (scale 4-6). ibuprofen 2020-07 Yes [id number] 600mg Take 1 Univers 600 mg 0-13 tablet by ity of tablet 00:00: mouth [place] 00 every 6 Medical (six) Branch hours as needed for Pain (scale 4-6). lactulose 2020-07- No [id number] 30mL Take 30 mL Univers 10 gram/15 0-13 -19 by mouth ity of mL oral 00:00: 04:59 daily for [place] solution 00 :00 5 days. Medical Branch methocarbam 2020-07- No [id number] 1500mg Take 2 Univers oL 750 mg 0-13 10-17 tablets by ity of tablet 00:00: 04:59 mouth 4 [place] 00 :00 (four) Medical times Branch daily for 3 days. Vital Signs Vital Name Observation Time Observation Value Comments Source Respiratory rate 2023-06-23 00:00:00 14 /min Univ ersity of [facility] Oxygen saturation in 2023-06-23 00:00:00 99 /min University of Arterial blood by [facility] Pulse oximetry Branch Systolic blood 2023-06-23 00:00:00 115 mm[Hg] Univer sity of [facility] Diastolic blood 2023-06-23 00:00:00 68 mm[Hg] Unive rsity of [facility] Heart rate 2023-06-23 00:00:00 68 /min Universi ty of [facility] Body temperature 2023-06-23 00:00:00 36.61 Yumiko Univ ersity [facility] Body height 2023-06-22 22:11:00 172.7 cm Universi ty [facility] [place] [facility] Body weight 2023-06-22 22:11:00 68.04 kg Universi ty of [facility] BMI 2023-06-22 22:11:00 22.81 kg/m2 Universi ty of [facility] Systolic blood 2023-04-30 06:24:43 122 mm[Hg] Univer sity of [facility] Diastolic blood 2023-04-30 06:24:43 71 mm[Hg] Unive rsity of [facility] Heart rate 2023-04-30 06:24:43 88 /min Universi ty [facility] [place] [facility] Body temperature 2023-04-30 06:24:43 37.11 Yumiko Univ ersity of [facility] [place] [facility] Branch Respiratory rate 2023-04-30 06:24:43 16 /min Univ ersity of [facility] Oxygen saturation in 2023-04-30 06:24:43 100 /min University of Arterial blood by [facility] Pulse oximetry Branch Body height 2023-04-30 04:38:00 172.7 cm [facility]i ty [facility] Body weight 2023-04-30 04:38:00 68.04 kg [facility]i ty [facility] [place] [facility] BMI 2023-04-30 04:38:00 22.81 kg/m2 [facility]i [facility] [place] [facility] Systolic blood 2021-10-03 13:30:00 112 mm[Hg] Univer [facility]ity [facility] [place] [facility] Diastolic blood 2021-10-03 13:30:00 70 mm[Hg] Unive rsity [facility] [place] [facility] Heart rate 2021-10-03 13:30:00 74 /min Universi ty [facility] [place] [facility] Respiratory rate 2021-10-03 13:30:00 14 /min Univ ers[facility] [place] [facility] Oxygen saturation in 2021-10-03 13:30:00 100 /min University of Arterial blood by [facility] hunter Pulse oximetry Branch Body temperature 2021-10-03 13:02:00 36.56 Yumiko [facility] ersity [facility] [place] [facility] Body weight 2021-10-03 13:02:00 68.04 kg Universi ty [facility] [place] [facility] BMI 2021-10-03 13:02:00 22.81 kg/m2 Universi ty [facility] [place] [facility] Systolic blood 2021-05-10 16:33:45 118 mm[Hg] Univer [facility]ity [facility] [place] [facility] Diastolic blood 2021-05-10 16:33:45 82 mm[Hg] Unive rsity [facility] [place] [facility] Heart rate 2021-05-10 16:33:45 56 /min Universi ty [facility] [place] [facility] Respiratory rate 2021-05-10 16:33:45 16 /min Univ ersity [facility] [place] [facility] Oxygen saturation in 2021-05-10 16:33:45 100 /min University of Arterial blood by [place] [facility] Pulse oximetry Branch Body temperature 2021-05-10 13:57:00 37.28 Yumiko Univ ersity [facility] [place] [facility] Body height 2021-05-10 13:57:00 172.7 cm Universi ty [facility] [place] [facility] Body weight 2021-05-10 13:57:00 67.132 kg [facility]i ty [facility] [place] [facility] BMI 2021-05-10 13:57:00 22.50 kg/m2 [facility] [place] [facility] Procedures Procedure Date / Time Performed Performing Clinician Tyree e ASSIGNMENT OF BENEFITS 2023-06-22 23:14:34 Doctor Unassigned, No [facility] RAPID STREP SCREEN FOR 2023-06-22 22:38:00 Laury Irvin [facility] [place] GROUP A Medical Branch RAPID INFLUENZA A/B 2023-06-22 22:38:00 Laury Irvin [facility] [place] [facility] COVID-19 (ID NOW RAPID 2023-06-22 22:38:00 Laury Irvin [facility] [place] TESTING) Medical Branch CONSENT/REFUSAL FOR 2023-06-22 22:00:58 Doctor Unassigned, No [facility] [place] DIAGNOSIS AND Name Medical Branch TREATMENT RAPID INFLUENZA A/B 2023-04-30 05:28:00 Perico Vazquez [facility] [place] [facility] COVID-19 (ID NOW RAPID 2023-04-30 05:28:00 [facility] [place] [facility] Medical Branch CONSENT/REFUSAL FOR 2023-04-30 04:34:33 Doctor Unassigned, No [facility] [place] DIAGNOSIS AND Name Medical Branch TREATMENT NOTICE OF PRIVACY 2023-04-30 04:33:56 Doctor Unassigned, No Univ [facility] [place] PRACTICES Name Medical Branch COMP. METABOLIC PANEL 2021-10-03 13:47:00 Cain Adams [facility] [place] [facility] ([id number]) Medical Branch CBC WITH DIFF 2021-10-03 13:47:00 Cain Adams [facility] Medical Branch CT ABDOMEN PELVIS W 2021-10-03 13:45:08 Cain Adams [facility] CONTRAST Medical Branch XR CHEST 1 VW 2021-10-03 13:36:20 Singer Cain [facility] Medical Branch TROPONIN I 2021-10-03 13:17:00 Singer [facility] [address] Medical Branch RAPID INFLUENZA A/B 2021-10-03 13:17:00 Cain Adams [facility] Medical Branch COVID-19 (ID NOW RAPID 2021-10-03 13:17:00 [facility] [place] [facility] Medical Branch NOTICE OF PRIVACY 2021-10-03 12:58:23 Doctor Unassigned, No Univ [facility] [place] PRACTICES Name Medical Branch CONSENT/REFUSAL FOR 2021-10-03 12:57:26 Doctor Unassigned, No [facility] [place] DIAGNOSIS AND Name Medical Branch TREATMENT CBC WITH DIFF 2021-05-10 16:32:00 Stanley Hanks Universi [facility] CT ABDOMEN PELVIS WO 2021-05-10 15:55:58 Stanley Hanks Uni versity [facility] CONTRAST [facility] COMP. METABOLIC PANEL 2021-05-10 15:45:00 Stanley Hanks Un [facility] ([id number]) [facility] URINALYSIS 2021-05-10 15:45:00 Stanley Hanks Universi ty [facility] NOTICE OF PRIVACY 2021-05-10 13:42:19 Doctor Unassigned, No Univ [facility] PRACTICES Name Medical Branch Encounters Start End Encounter Admission Attending Care Care Encounter Source Date/Time Date/Time Type Type Clinicians Facility Department ID 2023-06-22 2023-06-22 Emergency X NOVA IRVIN ERT [id number] Univers 16:14:00 18:05:00 LAURY cline [facility] 2023-06-22 2023-06-22 Emergency NOVA Irvin [id number] Univers 16:14:00 18:05:00 Laury RUIZ [id number] i ty of [place] 4.2.7.2.686 [facility] [id number] [address] 2023-04-29 2023-04-30 Emergency Perico Vazquez [id number] Univers 23:40:00 01:29:00 Ana RUIZ [id number] i ty of [place] 4.2.7.2.686 [facility] [id number] [address] 2023-04-29 2023-04-30 Emergency Perico HURTADO [facility] ERT [id number] Univers 23:40:00 01:29:00 son [facility] 2021-10-03 2021-10-03 NOVA Moseley ERT [id number] Univers 07:05:00 08:48:00 CAIN cline [facility] 2021-10-03 2021-10-03 NOVA Waters [id number] Univers 07:05:00 08:48:00 Cain RUIZ [id number] i ty of [place] 4.2.7.2.686 [facility] [id number] [address] 2021-05-10 2021-05-10 Emergency Ibjoeunle, [facility] [id number] Univers 09:00:00 13:11:00 Stanley Ruiz [id number] ity [facility] [id number] [facility] [id number] [place] [address] Branch 2021-05-10 2021-05-10 Emergency X [facility] ERT [id number] Univers 08:43:00 08:43:00 [facility] Results Test Description Test Time Test Comments Results Result Comments Source COMP. METABOLIC PANEL ([id number]) 2021-10-03 14:08:36 Test Item Value Reference Range Interpretation Comme nts NA (test code = 9303296786) 133 mmol/L 135-145 L K (test code = 3861062016) 3.9 mmol/L 3.5-5.0 CL (test code = 6154073242) 101 mmol/L 98-108 CO2 TOTAL (test code = 4639895820) 27 mmol/L 23-31 AGAP (test code = 9883966403) 2-16 BUN (test code = 2094053377) 12 mg/dL 7-23 GLUCOSE (test code = 1335182810) 121 mg/dL 70-110 H CREATININE (test code = 0.88 mg/dL 0.60-1.25 9416508650) TOTAL BILI (test code = 0.4 mg/dL 0.1-1.7 0612562458) CALCIUM (test code = 8282596329) 7.9 mg/dL 8.6-10.6 L T PROTEIN (test code = 9816401121) 5.8 g/dL 6.3-8.2 L ALBUMIN (test code = 6421874419) 3.4 g/dL 3.5-5.0 L ALK PHOS (test code = 5487471268) 44 U/L 34-122 ALTv (test code = 1742-6) 12 U/L 5-50 AST(SGOT) (test code = 7592104312) 20 U/L 13-40 eGFR (test code = 7665084148) mL/min/1.73m2 OLIVE (test code = OLIVE) Association [...] tests). Lab Interpretation (test code = Abnormal 11745-0) [facility] WITH [id number] 13:56:56 Test Item Value Reference Range Interpretation Comments WBC (test code = See_Comment [Automated 1090-2) message] The sy stem which generated this result transmitted reference range : 4.20 - 10.70 10*3/?L. The reference range was not used to interpret this result as normal/abnormal . RBC (test code = See_Comment L [Automated 479-8) message] The sy stem which generated this [...] (test code = 35.5 fL 38.5-51.6 L 45098-7) RDW-CV (test code = 10.9 % 12.1-15.4 L 788-0) PLT (test code = See_Comment [Automated 777-3) message] The sy stem which generated this result transmitted reference range : 150 - 328 10*3/ ?L. The reference r peg was not used to interpret this result as normal/abnormal . MPV (test code = 9.4 fL 9.8-13.0 L 01158-1) NRBC/100 WBC (test See_Comment [Automat ed code = 1094153694) message] The system which generated this result transmitted reference range : 0.0 - 10.0 /100 WBCs. The refer ence range was not u sed to interpret th is result as normal/abnormal . NRBC x10^3 (test code <0.01 See_Comment [Auto mated = 0661063279) message] The s ystem which generated this result transmitted reference range : 10*3/?L. The reference range was not used to interpret this result as normal/abnormal . GRAN MAT (NEUT) % 69.2 % (test code = 770-8) IMM GRAN % (test code 0.40 % = 9025963576) LYMPH % (test code = 15.3 % 736-9) MONO % (test code = 12.6 % 5905-5) EOS % (test code = 2.3 % 713-8) BASO % (test code = 0.2 % 706-2) GRAN MAT x10^3(ANC) 3.30 10*3/uL 1.99-6.95 (test code = 2680317884) IMM GRAN x10^3 (test <0.03 0.00-0.06 code = 0090590086) LYMPH x10^3 (test code 0.73 10*3/uL 1.09-3.23 L = 731-0) MONO x10^3 (test code 0.60 10*3/uL 0.36-1.02 = 742-7) EOS x10^3 (test code = 0.11 10*3/uL 0.06-0.53 711-2) BASO x10^3 (test code <0.03 0.01-0.09 = 704-7) Lab Interpretation Abnormal (test code = 31319-7) [facility] [id number] 13:51:14 Test Item Value Reference Interpretation Comments Range TROPONIN I (test 0.016 ng/mL See_Comment [Automated code = 8321283822) message] The system which generated this result [...] biotin. Lab Interpretation Normal (test code = 41079-9) [facility] WITH [id number] 17:33:17 Test Item Value Reference Range Interpretation Comments WBC (test code = See_Comment L [Automated 7890-2) message] The sy stem which generated this result transmitted reference range : 4.20 - 10.70 10*3/?L. The reference range was not used to interpret this result as normal/abnormal . RBC (test code = See_Comment [Automated 951-8) message] The sy stem which generated this [...] (test code = 38.4 fL 38.5-51.6 L 32558-8) RDW-CV (test code = 11.3 % 12.1-15.4 L 788-0) PLT (test code = See_Comment [Automated 777-3) message] The sy stem which generated this result transmitted reference range : 150 - 328 10*3/ ?L. The reference r peg was not used to interpret this result as normal/abnormal . MPV (test code = 9.6 fL 9.8-13.0 L 51651-6) NRBC/100 WBC (test See_Comment [Automat ed code = 2356997112) message] The system which generated this result transmitted reference range : 0.0 - 10.0 /100 WBCs. The refer ence range was not u sed to interpret th is result as normal/abnormal . NRBC x10^3 (test code <0.01 See_Comment [Auto mated = 2142866991) message] The s ystem which generated this result transmitted reference range : 10*3/?L. The reference range was not used to interpret this result as normal/abnormal . GRAN MAT (NEUT) % 44.3 % (test code = 770-8) IMM GRAN % (test code 0.20 % = 4449889726) LYMPH % (test code = 40.3 % 736-9) MONO % (test code = 8.4 % 5905-5) EOS % (test code = 6.1 % 713-8) BASO % (test code = 0.7 % 706-2) GRAN MAT x10^3(ANC) 1.80 10*3/uL 1.99-6.95 L (test code = 5199418524) IMM GRAN x10^3 (test <0.03 0.00-0.06 code = 4605268999) LYMPH x10^3 (test code 1.64 10*3/uL 1.09-3.23 = 731-0) MONO x10^3 (test code 0.34 10*3/uL 0.36-1.02 L = 742-7) EOS x10^3 (test code = 0.25 10*3/uL 0.06-0.53 711-2) BASO x10^3 (test code 0.03 10*3/uL 0.01-0.09 = 704-7) Lab Interpretation Abnormal (test code = 74982-4) [facility] (10248)2021-05-10 16:12:36 Test Item Value Reference Range Interpretation Comments NA (test code = 139 mmol/L 135-145 7641205123) K (test code = 4.5 mmol/L 3.5-5.0 8284973515) CL (test code = 105 mmol/L 98-108 4872105999) CO2 TOTAL (test code = 28 mmol/L 23-31 3242122239) AGAP (test code = 2-16 9852291505) BUN (test code = 13 mg/dL 7-23 5810324105) GLUCOSE (test code = 89 mg/dL 70-110 0422444732) CREATININE (test code = 0.78 mg/dL 0.60-1.25 2792408461) TOTAL BILI (test code = 0.9 mg/dL 0.1-1.7 3829447801) CALCIUM (test code = 9.9 mg/dL 8.6-10.6 5362190698) T PROTEIN (test code = 8.3 g/dL 6.3-8.2 H 9034185801) ALBUMIN (test code = 5.0 g/dL 3.5-5.0 2850465449) ALK PHOS (test code = 45 U/L 34-122 1397036448) ALTv (test code = 21 U/L 5-50 1742-6) AST(SGOT) (test code = 44 U/L 13-40 H 8590507384) eGFR (test code = mL/min/1.73m2 0634071187) OLIVE (test code = OLIVE) Association of [...] tests). Lab Interpretation Abnormal (test code = 01625-6) [facility]"
[2023-06-23 19:25] LABS: SARS-COV-2 RT PCR NEGATIVE (NEGATIVE)
--- NOTE | 2023-06-23 19:44 | ER ---
Nurse's Notes [facility] Name: Preston Mayes Jr Age: 37 yrs Sex: Male : 1985 Arrival Date: 06/23/2023 Time: 16:03 Bed 12 Private MD: Diagnosis: Influenza due to other identified influenza virus with other respiratory manifestations-flu B;Streptococcal pharyngitis Presentation: 06/23 16:09 Chief complaint: Patient states: COUGH CONGESTION AND SORE THROAT STARTED SATURDAY. db STATES WAS SEEN YESTERDAY AT [facility] FOR SAME SYMPTOMS BUT FEELS WORSE TODAY. WANTS TO BE SWABBED FOR "EVERYTHING" AND WANTS A STREP SWAB AGAIN. 16:13 Coronavirus screen: Client denies travel out of the [place] in the last 14 days. At this db time, the client does not indicate any symptoms associated with coronavirus-19. Coronavirus screen: Vaccine status: Patient reports receiving the 2nd dose of the covid vaccine. Ebola Screen: Patient negative for fever greater than or equal to 101.5 degrees Fahrenheit, and additional compatible Ebola Virus Disease symptoms Patient denies exposure to infectious person. Patient denies travel to an Ebola-affected area in the 21 days before illness onset. No symptoms or risks identified at this time. Initial Sepsis Screen: Does the patient meet any 2 criteria? No. Patient's initial sepsis screen is negative. Does the patient have a suspected source of infection? No. Patient's initial sepsis screen is negative. Risk Assessment: Do you want to hurt yourself or someone else? Patient reports no desire to harm self or others. Onset of symptoms was June 23, 2023. 16:13 Method Of Arrival: Ambulatory db 16:13 Acuity: DEEPIKA 4 db Triage Assessment: 16:14 General: Appears in no apparent distress. comfortable, Behavior is calm, cooperative. db Pain: Complains of pain in face. EENT: Reports difficulty swallowing AND SORE THROAT. Neuro: Level of Consciousness is awake, alert, obeys commands, Oriented to person, place, time, situation. Cardiovascular: Capillary refill < 3 seconds. Respiratory: Airway is patent Respiratory effort is even, unlabored, Respiratory pattern is regular, symmetrical, Parent/caregiver reports the patient having cough that is. Historical: - Allergies: 16:14 No Known Allergies; db - PMHx: 16:14 Stomach ulcer; db - Immunization history:: Client reports receiving the 2nd dose of the Covid vaccine. - Social history:: Smoking status: Patient reports the use of cigarette tobacco products, smokes one-half pack cigarettes per day. Screenin:30 [facility] ED Fall Risk Assessment (Adult) History of falling in the last 3 months, kb3 including since admission No falls in past 3 months (0 pts) Confusion or Disorientation No (0 pts) Intoxicated or Sedated No (0 pts) Impaired Gait No (0 pts) Mobility Assist Device Used No (0 pt) Altered Elimination No (0 pt) Score/Fall Risk Level 0 - 2 = Low Risk Oriented to surroundings, Maintained a safe environment, Educated pt \\T\\ family on fall prevention, incl call for assistance when getting out of bed. Abuse screen: Denies threats or abuse. Denies injuries from another. Nutritional screening: No deficits noted. Tuberculosis screening: No symptoms or risk factors identified. Assessment: 17:30 General: Appears in no apparent distress. Behavior is calm, cooperative. Pain: kb3 Complains of pain in uvula, left aspect of posterior pharynx and right aspect of posterior pharynx Pain does not radiate. Pain currently is 8 out of 10 on a pain scale. Quality of pain is described as burning, sharp, stinging, Pain began 2-3 days ago. Is continuous, Also complains of Runny nose, cough, fever. Vital Signs: 16:09 BP 135 / 80; Pulse 93; Resp 18; Temp 98.9(O); Pulse Ox 98% ; Weight 68.04 kg; Height 5 db ft. 8 in. ; 20:30 BP 126 / 70; Pulse 77; Resp 20; Temp 99; Pulse Ox 100% ; Pain 3/10; kb3 16:09 Body Mass Index 22.81 (68.04 kg, 172.72 cm) db 20:30 Pain Scale: Adult kb3 ED Course: 16:07 Patient arrived in ED. mg5 16:09 Ninfa Curtis FNP-C is PHCP. snw 16:09 Cory Horn MD is Attending Physician. snw 16:14 Triage completed. db 16:15 Arm band placed on right wrist. db 18:00 Patient has correct armband on for positive identification. Call light in reach. kb3 Provided Education on: plan of care. 18:00 No provider procedures requiring assistance completed. Patient did not have IV access kb3 during this emergency room visit. Patient maintains SpO2 saturation greater than 95% on room air. Administered Medications: 20:27 Drug: Acetaminophen PO 1000 mg PO once Route: PO; kb3 20:27 Drug: AZITHromycin PO 500 mg PO once Route: PO; kb3 Medication: 20:30 VIS not applicable for this client. kb3 Outcome: 19:44 Discharge ordered by . snw 20:30 Discharged to home ambulatory, kb3 20:30 Condition: stable kb3 20:30 Discharge instructions given to patient, family, Instructed on discharge instructions, follow up and referral plans. medication usage, Demonstrated understanding of instructions, follow-up care, medications, Prescriptions given X 4, 20:45 Patient left the ED. kb3 Signatures: Ninfa Curtis, PEARL FISHERMAN-C PEARL FISHERMAN-Csnw Ilene Wu, RN RN kb3 Sejal Vivas, RN RN Shawna Sampson mg5
--- NOTE | 2023-06-23 19:44 | EDPHYS ---
Physician Documentation [facility] Name: Preston Mayes Jr Age: 37 yrs Sex: Male : 1985 Arrival Date: 06/23/2023 Time: 16:03 Bed 12 Private MD: ED Physician Cory Horn HPI: 06/23 20:14 This 37 yrs old Black Male presents to ER via Ambulatory with complaints of Sore snw Throat, Flu Symptoms. 20:14 The patient presents with sore throat, dysphagia. The patient describes throat pain as snw raw, scratchy. Onset: The symptoms/episode began/occurred acutely, 4 day(s) ago, and became persistent. Severity of symptoms: At their worst the symptoms were moderate. The patient has not experienced similar symptoms in the past, but family has similar symptoms, daughter, son. Historical: - Allergies: 16:14 No Known Allergies; db - PMHx: 16:14 Stomach ulcer; db - Immunization history:: Client reports receiving the 2nd dose of the Covid vaccine. - Social history:: Smoking status: Patient reports the use of cigarette tobacco products, smokes one-half pack cigarettes per day. ROS: 20:12 Constitutional: Positive for fever, chills, negative for weight loss, Eyes: Negative snw for injury, pain, redness, and discharge, Neck: Negative for injury, pain, and swelling, 20:12 Cardiovascular: Negative for chest pain, palpitations, and edema, 20:12 Abdomen/GI: Negative for abdominal pain, nausea, vomiting, diarrhea, and constipation, Back: Negative for injury and pain, : Negative for injury, bleeding, discharge, and swelling, MS/Extremity: Negative for injury and deformity, Skin: Negative for injury, rash, and discoloration, Neuro: Negative for headache, weakness, numbness, tingling, and seizure, Psych: Negative for depression, anxiety, suicide ideation, homicidal ideation, and hallucinations, 20:12 ENT: Positive for sinus congestion, sore throat, 20:12 Respiratory: Positive for cough, with no reported sputum, Exam: 20:12 Head/Face: Normocephalic, atraumatic. Eyes: Pupils equal round and reactive to light, snw extra-ocular motions intact. Lids and lashes normal. Conjunctiva and sclera are non-icteric and not injected. Cornea within normal limits. Periorbital areas with no swelling, redness, or edema. 20:12 Neck: Trachea midline, no thyromegaly or masses palpated, and no cervical lymphadenopathy. Supple, full range of motion without nuchal rigidity, or vertebral point tenderness. No Meningismus. Chest/axilla: Normal chest wall appearance and motion. Nontender with no deformity. No lesions are appreciated. Cardiovascular: Regular rate and rhythm with a normal S1 and S2. No gallops, murmurs, or rubs. Normal PMI, no JVD. No pulse deficits. Respiratory: Lungs have equal breath sounds bilaterally, clear to auscultation and percussion. No rales, rhonchi or wheezes noted. No increased work of breathing, no retractions or nasal flaring. Abdomen/GI: Soft, non-tender, with normal bowel sounds. No distension or tympany. No guarding or rebound. No evidence of tenderness throughout. Back: No spinal tenderness. No costovertebral tenderness. Full range of motion. Skin: Warm, dry with normal turgor. Normal color with no rashes, no lesions, and no evidence of cellulitis. MS/ Extremity: Pulses equal, no cyanosis. Neurovascular intact. Full, normal range of motion. Neuro: Awake and alert, GCS 15, oriented to person, place, time, and situation. Cranial nerves II-XII grossly intact. Motor strength 5/5 in all extremities. Sensory grossly intact. Cerebellar exam normal. Normal gait. Psych: Awake, alert, with orientation to person, place and time. Behavior, mood, and affect are within normal limits. 20:12 Constitutional: The patient appears alert, awake, anxious, uncomfortable, 20:12 ENT: Ear canal(s): are normal, TM's: are normal, Nose: Nasal mucosa: edematous, nasal drainage, that is moderate, and is seen coming from both nares, that is clear, Mouth: is normal, Posterior pharynx: erythema, that is mild, that is moderate, Voice: is normal, Vital Signs: 16:09 BP 135 / 80; Pulse 93; Resp 18; Temp 98.9(O); Pulse Ox 98% ; Weight 68.04 kg; Height 5 db ft. 8 in. ; 20:30 BP 126 / 70; Pulse 77; Resp 20; Temp 99; Pulse Ox 100% ; Pain 3/10; kb3 16:09 Body Mass Index 22.81 (68.04 kg, 172.72 cm) db 20:30 Pain Scale: Adult kb3 MDM: 16:18 Patient medically screened. kayleigh 20:13 Differential diagnosis: viral Infection, bacterial infection, URI, pneumonia group A snw strep tonsillitis. Data reviewed: vital signs, nurses notes, lab test result(s). I considered the following discharge prescriptions or medication management in the emergency department Medications were administered in the Emergency Department. See MAR. Historians other than the Patient: Spouse/Significant Other: . Counseling: I had a detailed discussion with the patient and/or guardian regarding the historical points, exam findings, and any diagnostic results supporting the discharge/admit diagnosis, lab results, the need for outpatient follow up, for definitive care, to return to the emergency department if symptoms worsen or persist or if there are any questions or concerns that arise at home. Response to treatment: the patient's symptoms have mildly improved after treatment. Special discussion: Based on the history and exam findings, there is no indication for further emergent testing or inpatient evaluation. I discussed with the patient/guardian the need to see the primary care provider for further evaluation of the symptoms. 06/23 17:24 Order name: COVID-19/FLU A+B/RSV; Complete Time: 19:43 snw 06/23 19:01 Order name: Rapid Strep; Complete Time: 20:01 pf1 Administered Medications: 20:27 Drug: Acetaminophen PO 1000 mg PO once Route: PO; kb3 20:27 Drug: AZITHromycin PO 500 mg PO once Route: PO; kb3 Disposition Summary: 06/23/23 19:44 Discharge Ordered Notes: Location: Home snw Condition: Stable snw Diagnosis - Influenza due to other identified influenza virus with other respiratory snw manifestations - flu B - Streptococcal pharyngitis snw Followup: snw - With: Emergency Department - When: As needed - Reason: Worsening of condition Followup: snw - With: Private Physician - When: 2 - 3 days - Reason: Recheck today's complaints, Continuance of care, Re-evaluation by your physician Discharge Instructions: - Discharge Summary Sheet snw - Influenza, Adult snw - Strep Throat, Adult snw - Rehydration, Adult snw Forms: - Work release form snw - Medication Reconciliation Form snw - Thank You Letter snw - Antibiotic Education snw - Prescription Opioid Use snw - Patient Portal Instructions snw - Leadership Thank You Letter snw Prescriptions: - Zyrtec 10 mg Oral Tablet - take 1 tablet ORAL route once daily As needed; 20 tablet; Refills: 0, Product snw Selection Permitted - Pepcid 20 mg Oral Tablet - take 1 tablet ORAL route once daily; 20 tablet; Refills: 0, Product Selection snw Permitted - promethazine 25 mg Oral tablet - take 1 tablet ORAL route every 6 hours As needed; 15 tablet; Refills: 0, snw Product Selection Permitted - Zithromax 500 mg Oral Tablet - take 1 tablet ORAL route once daily for 3 days; 3 tablet; Refills: 0, Product snw Selection Permitted Signatures: Dispatcher [employer] Cory Chan MD MD cha Waters, Shelly, BULK MAIL CLERK-C BULK MAIL CLERK-Csnw Ilene Wu RN RN kb3 Sejal Vivas RN RN db
[2023-06-23] MEDS ORDERED: AZITHROMYCIN 250 MG TAB ONE (20:23)
[2023-06-23] MEDS ORDERED: ACETAMINOPHEN 500 MG TAB ONE (20:23)
[2023-06-23 21:02] VITALS: BP 126/70; TEMP 99; O2SAT 100
== END 2023-06-23 20:45 | disposition home or self-care (01) ==
LOC: ER 16:03
DX: J11.1 Influenza due to unidentified influenza virus with other respiratory manifestations (principal); J02.0 Streptococcal pharyngitis; Z11.52 Encounter for screening for COVID-19
CPT/HCPCS: 0241U; 87081; 99284